=== PATIENT | female | born 1965 | race Caucasian/White ===

== ENCOUNTER 2024-12-28 14:10 | Emergency (ER) | payer OTHER, SELFPAY ==
[2024-12-28 14:29] VITALS: BP 157/85; PULSE 80; RESP 18; TEMP 37.1; O2SAT 98; BMI 34.7
--- NOTE | 2024-12-28 14:34 | CRLHL7_ITS ---
For Patients: As a result of the Century Cures Act, medical imaging exams and procedure reports are released immediately into your electronic medical record. You may view this report before your referring provider. If you have questions, please contact your health care provider. Indication: Fall, pain in 5th metatarsal. Technique: Right foot 3 views. Comparison: None. Findings: Bones: Alignment is normal. Acute nondisplaced fracture of the 5th metatarsal base with mild comminution. Small calcaneal plantar enthesophyte. Joint spaces: Yilg-li-bsekmtoh scattered degenerative changes. Soft tissues: Mild soft tissue swelling about the lateral aspect of the foot. Impression: Acute nondisplaced fracture of the 5th metatarsal base with mild comminution. Dictated by Manav Vivas MD @ 12/28/2024 3:15:16 PM (Electronically Signed)
--- OUTSIDE RECORDS SUMMARY | 2024-12-28 14:55 | XMS_ITS | Clinical Summary ---
Author Organization [facility] Address [address] [place] [address] Care Team Providers Care Metal Can Inspector Name Role Phone Nova Mishra MD Primary Care Provider [phone] Allergies Active Allergy Reactions Criticality Noted Date Comments Nsaids (Non-Steroidal Anti-Inflammatory Drug) 08/31/2014 S/p gastric surgery by Dr. Babb Medications sertraline (ZOLOFT) 25 mg Oral Tab Take 25 mg by mouth Once Daily. Active Active Problems Problem Noted Date Diagnosed Date Nausea & vomiting 09/18/2016 Anxiety 09/01/2014 Essential hypertension 09/01/2014 Nausea 09/01/2014 Obesity, Class III, BMI 40-49.9 (morbid obesity) 08/31/2014 Family History Medical History Relation Comments Lung Cancer Father Other Disease Mother esophageal CA Relation Status Comments Father Mother Social History Tobacco Use Types Packs/Day Years Used Date Smoking Tobacco: Never Smokeless Tobacco: Never Alcohol Use Standard Drinks/Week Comments No 0 (1 standard drink = 0.6 oz pur e alcohol) Comments Unknown Sex and Gender Information Value Date Recorded Sex Assigned at Not on file Legal Sex Female 8:26 AM CDT Gender Identity Not on file Sexual Orientation Not on file Last Filed Vital Signs Vital Sign Reading Time Taken Comments Blood Pressure 152/79 01/19/2019 7:45 AM CDT Pulse 77 01/19/2019 7:45 AM CDT Temperature 36.8 C (98.3 F) 2014 2:51 PM CDT Respiratory Rate 16 09/18/2016 10:07 AM CDT Oxygen Saturation 77% 01/19/2019 7:45 AM CDT Inhaled Oxygen Concentration - - Weight 90.7 kg (200 lb) 08/19/2016 1:12 PM CDT Height 167.6 cm (5' 6) 01/19/2019 5:49 AM CDT Body Mass Index 32.28 08/19/2016 1:12 PM CDT Plan of Treatment Health Maintenance Due Date Last Done Comments Colonoscopy 1965 Hepatitis C Screening 1965 Pap Smear 1965 Anxiety Follow-Up (MICHAEL-7) 09/06/1964 Depression Assessment (PHQ-2) 09/06/1964 Pneumococcal 50+ Years (1 of 1 - PCV) 09/06/2013 Yearly Review of HCD 01/19/2020 01/19/2019, 08/12/2016, 10/06/2014 Zoster Vaccine (2 of 2) 02/10/2022 12/16/2021 Mammogram Screening 03/22/2022 03/22/2020 Lipid Screening 12/03/2023 12/02/2018 COVID-19 Vaccine (4 - 2023-2 5 season) 2024 03/08/2021, 07/14/2020, 06/16/2020 Influenza Vaccine (#1) 2025 2, 01/13/2020 Adult Tetanus Booster 12/02/2028 12/02/2018 , 10/18/2008 RSV Vaccines (1 - 1-dose 75+ series) 09/06/2038 Meningococcal B Vaccine Aged Out No l onger eligible based on patient's age to complete this topic Medical Devices Implanted Type Area Curriculum Supervisor Device Identifier Shelf Expiration Date Model / Serial / Lot Seam Guard 60 - [id number] Implanted:Qty : 5 on 08/31/2014 by Tito Babb MD at [facility] Supply N/A: Stomach [employer] 04/02/2017 [id number] / / [id number] Procedures Procedure Name Priority Date/Time Associated Diagnosis Comments LIPID PROFILE CASCADE Routine 12/02/2018 2:44 PM CDT Encounter for screening for lipoid disorders from Last 3 Months or Most Recently Relevant to Health Maintenance Results * LIPID PROFILE CASCADE (12/02/2018 2:44 PM CDT) Specimen Type 12/02/2018 10:30 PM CDT [facility] Cholesterol 155 <200 mg/dL 12/02/2018 10:30 PM CDT [facility] Triglycerides 40 <150 mg/dL 12/02/2018 10:30 PM CDT [facility] LDL Chol, Calc 43 <100 mg/dL 12/02/2018 10:30 PM CDT [facility] HDL Cholesterol 104 >40 mg/dL 9 10:30 PM CDT [facility] Chol/HDL Ratio 1.5 0.0 - 4.9 12/02/2018 10:30 PM T [facility] Blood 12/02/2018 2:44 PM CDT 12/02/2018 10:15 PM CDT Narrative [facility] - 12/02/2018 10:30 PM CDT LDL CHOLESTEROL REFERENCE RANGES: (FOR PATIENTS W/O HEART DISEASE) <100 mg/dL = Optimal 100-129 mg/dL = Near/Above Optimal 130-159 mg/dL = Borderline High 160-189 mg/dL = High >/= 190 mg/dL = Very High us Nova Mishra MD CHEMISTRY ORDERABLE Final Result [facility] [address] [place] [address] from Last 3 Months or Most Recently Relevant to Health Maintenance Care Teams Metal Can Inspector Relationship Specialty Start Date End Date Nova Mishra MD PCP - General Family Medicine 08/30/14
--- OUTSIDE RECORDS SUMMARY | 2024-12-28 14:55 | XMS_ITS | Patient Health Record ---
Author Organization [facility] Address [address] [place] [address] [address] GARCIA [place] [id number] Care Team Providers Care Cotton Tipper Name Role Phone JOSE ANNE MD Unavailable Unavailable Allergies Allergen (clinical drug ingredient) Drug/Non Drug Allergy documented on EMR Reaction Allergy Type Onset Date Status NSAIDS Unknown Drug Allergy Active Reason For Referral No Information Medications Medication SIG (Take, Route, Frequency, Duration) Notes Start Date End Date Status Calcium Citrate-Vitamin D 500-400 MG-UNIT 2 tablet Orally Twice a day Minitures- Active Centrum Silver take two tablets Orally daily Active Vitamin D High Potency 1000 UNIT 1 capsule Orally Once a day this will be taken in chewable form Active Sertraline HCl 50 MG 1 tablet Orally Once a day Active Omeprazole Magnesium 20 MG 1 tablet Orally Once a day Not-Taking Problems Problem Type SNOMED Code ICD Code Onset Dates Problem Status W/U Status Risk Notes Problem History of bariatric surgical procedure (375376085) Bariatric surgery status (V45.86) Active confirmed Problem Postoperative follow-up visit (361975331) Post op follow-up exam (V67.09) Active confirmed Problem Body mass index 35.00 to 39.99 (087265026888571) BMI 39.0-39.9, adult (V85.39) Active confirmed Problem Body mass index 40+ - severely obese (935774534) BMI 45.0-49.9, adult (V85.42) Active confirmed Problem Hypertension (69636525) Hypertension (401.9) Active confirmed Problem Morbid obesity (491899923) Morbid obesity (278.01) Active confirmed Problem Anxiety (76258143) Anxiety (300.00) Active conf irmed Problem Gastroesophageal reflux disease (796061107) Gastroesophageal reflux disease (530.81) Active confirmed Problem Joint pain (60816201) Joint pain (719.40) Active confirmed Problem Anxiety (23828284) Anxiety (F41.9) Active confi rmed Problem Constipation (62235919) Constipation (K59.00) Active confirmed Problem Obesity (824044124) Obesity, Cla ss I & II (E66.09) Active confirmed Problem Fatty liver (186730820) Fatty (change of) liver, not elsewhere classified (K76.0) Active confirmed Problem Acute abdomen (0034063) Acute abdomen (R10.0) Active confirmed Problem Body mass index 30.00 to 34.99 (334413925503978) Body mass index (BMI) 31.0-31.9, adult (Z68.31) Active confirmed Problem Body mass index 30.00 to 34.99 (614395571854209) Body mass index (BMI) 34.0-34.9, adult (Z68.34) Active confirmed Problem History of bariatric surgical procedure (749738874) Bariatric surgery status (Z98.84) Active confirmed Problem Obesity (083146058) Obesity, unspecified (E66.9) Active confirmed Problem Bowel obstruction (14038997) Bowel obstruction (K56.60) Active confirmed Problem Constipation (95198921) Constipation, unspecified constipation type (K59.00) Active confirmed Problem Obese class II (902460091195920) BMI 35.0-35.9,adult (Z68.35) Active confirmed Problem Obese class I (finding) (118412174173910) Obesity (BMI 30.0-34.9) (E66.9) Active confirmed Plan Of Treatment No Information Insurance Providers Payer Name Payer Address Payer Phone Subscriber Number Group Number Insured Name Patient Relationship to Insured Coverage Start Date Coverage End Date [employer] [address] [address] [place] [address] [id number] ARLEY WAITE Self - patient is the insured Medical (General) History Medical History History ICD Code H/O lumpectomy V45.89 Fatty (change of) liver, not elsewhere c lassified K76.0 obesity anxiety essential hypertension nausea and vomiting constipation dysphagia heartburn mitral valve prolapse abdominal pain lumbar pain spondylolisthesis muscular deconditioning Surgical History Surgery Date(Month/Year) dilatation and curettage lumpectomy 1999 EGD - Dr. Babb 09/15/2013 colonoscopy 2015 lap vertically oriented sleeve gastrecto my - Dr Tito Babb 08/31/2014 endoscopy 2015 wisdom teeth extraction upper GI endoscopy - Dr Tito Babb 09/18/2016 Hospitalization History Reason Date(Month/Year) Childbirth x2
--- OUTSIDE RECORDS SUMMARY | 2024-12-28 14:55 | XMS_ITS | Clinical Summary ---
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 Gender Identity Not on file Sexual Orientation Not on file Plan of Treatment Health Maintenance Due Date Last Done Comments Tetanus booster 09/06/1974 Depression screening for age 12+ 1975 HIV for age 15-65 09/06/1978 BMI (ht and wt on same day) for age 18+ 09/06/1981 Hepatitis C screening for ag e 18-79 09/06/1981 Pap test for age 21-65 09/06/1984 Colonoscopy through age 75 09/06/2008 Lipids for age 45-75 09/06/2008 Mammogram for age 45-75 09/06/2008 Pneumococcal series for age 50+ (1 of 1 - PCV) 09/06/2013 Zoster (shingles) series for age 50+ (1 of 2) 09/06/2013 COVID-19 vaccine series ( - 2023- season) 2024 Influenza Vaccine (#1) 2025 RSV vaccine for adults or (1 - 1-dose 75+ series) 09/06/2038 Hepatitis B series for 19+ Aged Out N o longer eligible based on patient's age to complete this topic Insurance [facility] Care Teams Medium Cycle Salesperson Relationship Specialty Start Date End Date Rick Daugherty MD [address] [place] [phone] PCP - General Screening Tech 07/28/24
--- OUTSIDE RECORDS SUMMARY | 2024-12-28 14:55 | XMS_ITS | Clinical Summary ---
Author Organization [facility] Address [address] [place] [address] Care Team Providers Care Bulb Grader Name Role Phone Unavailable Primary Care Provider Unavailabl e Source Comments You are receiving this document as you are listed as the primary care provider,follow-up provider, or the patient has been referred to you for consultation.This is in compliance with the Medicare and[facility] EHR Incentive Program,which states Providers who transition their patient to another setting of careor provider of care or refers their patient to another provider of care shouldprovide summary care record for each transition of care or referral. [facility] Allergies No known active allergies Medications multivitamin (THERAGRAN) tablet Take 1 Tab by mouth daily. Active cyclobenzaprine (FLEXERIL) 5 MG tablet Take 1-2 Tabs by mouth three times a day as needed for Muscle Spasms. 30 Tab 12/15/2016 Active cholecalciferol (VITAMIND3) 2000 UNITS tablet Take 2,000 Units by mouth daily. Active sertraline (ZOLOFT) 100 MG tablet Take 100 mg by mouth daily. 07/28/2020 Active Active Problems No known active problems Resolved Problems Problem Noted Date Diagnosed Date Resolved Date Lumbar pain 12/02/2017 05/20/2018 Immunizations Immunization Administration Dates Next Due Tdap 10/18/2008 Family History Medical History Relation Name Comments Cancer, Breast Maternal Grandmother Cancer, Ovary Negative Family History Relation Name Status Comments Maternal Grandmother Social History Tobacco Use Types Packs/Day Years Used Date Smoking Tobacco: Never Smokeless Tobacco: Never Comments No Sex and Gender Information Value Date Recorded Sex Assigned at Female 02/18/2024 1:54 PM CDT Legal Sex Female 7:31 PM CDT Gender Identity Female 02/18/2024 1:54 PM CDT Sexual Orientation Straight 02/18/2024 1: 54 PM CDT Last Filed Vital Signs Vital Sign Reading Time Taken Comments Blood Pressure 162/76 06/22/2017 3:10 PM FORM SETTER Pulse 68 06/22/2017 3:10 PM FORM SETTER Temperature 36.6 C (97.8 F) 12/15/2016 11:24 AM CDT Respiratory Rate 16 11/28/2016 2:55 PM CDT Oxygen Saturation 100% 11/28/2016 2:55 PM CDT Inhaled Oxygen Concentration - - Weight 88.9 kg (196 lb) 06/22/2017 3:10 PM FORM SETTER Height 167.6 cm (5' 6) 06/22/2017 3:10 PM FORM SETTER Body Mass Index 31.64 06/22/2017 3:10 PM FORM SETTER Plan of Treatment Health Maintenance Due Date Last Done Comments Cervical Cancer Screening Due 1965 Colon Cancer Screening Plan Due 1965 Hep C Screening (Preventive Services) 1963 HIV Screening (Preventive Services) 1979 Adult Preventive Visit 09/06/1981 Cholesterol 09/06/2008 Pneumococcal Vaccine 50+ Yrs (1 of 1 - PCV) 09/06/2013 Zoster/Shingles Vaccine (1 o f 2) 09/06/2013 Mammogram 06/04/2023 06/04/2022, 03/22/2020 COVID-19 Vaccine (3 - 2023-2 5 season) 2024 07/14/2020, 06/16/2020 Influenza Vaccine (#1) 2025 01/13/2020 DTaP/Tdap/Td Vaccine (3 - Tdap) 12/02/2028 12/02/2018, 10/18/2008 RSV Vaccine (1 - 1-dose 75+ series) 09/06/2038 HepA Vaccine Aged Out No longer eligi ble based on patient's age to complete this topic HepB Vaccine Aged Out No longer eligi ble based on patient's age to complete this topic Hib Vaccine Aged Out No longer eligi ble based on patient's age to complete this topic IPV (Polio) Vaccine Aged Out No longe r eligible based on patient's age to complete this topic MCV4 Vaccine Aged Out No longer eligi ble based on patient's age to complete this topic Meningococcal B Vaccine Aged Out No l onger eligible based on patient's age to complete this topic Procedures Procedure Name Priority Date/Time Associated Diagnosis Comments MM MAMMOGRAM SCREENING BILAT W 3D CANDY W CAD Routine 06/04/2022 3:04 PM FORM SETTER Visit for screening mammogram from Last 3 Months or Most Recently Relevant to Health Maintenance Results * MM Mammogram Screening Bilat W 3D Candy W CAD (06/04/2022 3:04 PM FORM SETTER) Anatomical Region Laterality Modality Breast Bilateral Mammography Impressions 06/05/2022 11:59 AM FORM SETTER : ACR BI-RADS Category 1: Negative RECOMMENDATION: Follow Up Imaging in 12 months - Bilateral The results and recommendations of this examination will be communicated to the patient. Narrative 06/05/2022 11:59 AM FORM SETTER MM MAMMOGRAM SCREENING BILAT W 3D CANDY W CAD performed on 06/04/22 Compared to: 03/22/2020 MM Mammogram Screening Bilat W 3D Candy W CAD FINDINGS: Bilateral screening mammogram was performed with the assistance of Computer-Aided Detection and breast tomosynthesis. The breasts are heterogeneously dense, which may obscure small masses. There is no radiographic evidence of malignancy. Rick Daugherty MD [facility] Final Result from Last 3 Months or Most Recently Relevant to Health Maintenance Insurance [facility] Member Subscriber Plan / Payer (Ef fective 2016-Present) Name:Arley Waite Relation to Subscriber:Employee Name:ARLEY WAITE (Home) Payer ID:Not on file Group ID:Not on file Type:Workers Comp Address: [address] [place] [id number]
--- NOTE | 2024-12-28 15:21 | ED.GENADULT ---
HPI - General Adult General Chief complaint: Extremity Pain/Injury, Lower Stated complaint: possible R foot break Time Seen by Provider: 12/28/24 14:18 Source: patient Mode of arrival: wheelchair Limitations: no limitations History of Present Illness HPI narrative: Lalita 59-year-old female presenting today with foot pain. States that she was wearing new high heel shoes when her foot rolled and she felt immediate pain over the lateral right foot. Could not bear weight afterwards. Denies other injury. States that she is generally healthy, takes no medications. Related Data Home Medications ?Medication ?Instructions ?Recorded ?Confirmed No Known Home Medications 12/28/24 12/28/24 Allergies Allergy/AdvReac Type Severity Reaction Status Date / Time No Known Drug Allergies Allergy Verified 12/28/24 14:27 Review of Systems Status of ROS: Reports: 6 or more systems reviewed and unremarkable except as noted in History and below [facility] Social History Smoking Status: Never smoker How often do you have a drink containing alcohol: monthly or less AUDIT-C Alcohol total score: 1 Non-prescribed substance use: denies use Exam Narrative: Exam Narrative: Well-nourished female no acute distress. Alert oriented, pleasant, answering questions appropriately. Right foot has swelling and ecchymosis over the lateral dorsal surface. Tenderness to palpation at the area. Normal DP and PT pulses. Normal capillary refill. Const: Vital Signs, click to edit/add: Vital Signs - 24 hr 12/28/24 14:29 Temperature 98.7 F Pulse Rate [Pulse Oximeter] 80 Respiratory Rate 18 Blood Pressure [Ri ght Upper Arm] 157/85 H Pulse Oximetry 98 Oxygen Delivery Me thod Room Air Course Course ED Course: X-ray of the foot, read by me, shows a fracture of the proximal 5th metatarsal. Toradol given IM. Patient placed in a cam boot. Vital Signs Vital signs: Initial Vital Signs Temperature 98.7 F 12/28/24 14:29 Temperature Source Temporal Artery Scan 12/28/24 14:29 Pulse Rate 80 12/28/24 14:29 Respiratory Rate 18 12/28/24 14:29 Blood Pressure 157/85 H 12/28/24 14:29 Blood Pressure Mean 109 H 12/28/24 14:29 Pulse Oximetry 98 12/28/24 14:29 Oxygen Delivery Method Room Air 12/28/24 14:29 Vital Signs Temperature 98.7 F 12/28/24 14:29 Pulse Rate 80 12/28/24 14:29 Respiratory Rate 18 12/28/24 14:29 Blood Pressure 157/85 H 12/28/24 14:29 Pulse Oximetry 98 12/28/24 14:29 Oxygen Delivery Method Room Air 12/28/24 14:29 Temperature 98.7 F 12/28/24 14:29 Pulse Rate 80 12/28/24 14:29 Respiratory Rate 18 12/28/24 14:29 Blood Pressure 157/85 H 12/28/24 14:29 Pulse Oximetry 98 12/28/24 14:29 Oxygen Delivery Method Room Air 12/28/24 14:29 Medical Decision Making MDM Narrative Medical decision making narrative: Fracture of the proximal 5th metatarsal. Patient will follow-up with orthopedics. Imaging Data X-ray foot: Attestation: I have reviewed the pertinent imaging results. Radiologist's impression: Technique: Right foot 3 views. Comparison: None. Findings: Bones: Alignment is normal. Acute nondisplaced fracture of the 5th metatarsal base with mild comminution. Small calcaneal plantar enthesophyte. Joint spaces: [id number]-[id number] scattered degenerative changes. Soft tissues: Mild soft tissue swelling about the lateral aspect of the foot. Impression: Acute nondisplaced fracture of the 5th metatarsal base with mild comminution. Discharge Plan Discharge Clinical Impression: Fracture of metatarsal bone Patient Disposition: Home, Self-Care Condition: Stable Additional Instructions: Elevate but throughout the day as much as you can. Ice for 20 minutes at a time every 2 hours. Do not apply ice directly to the skin. Wear boot whenever walking. Follow-up with orthopedics in the next 5 days. Take pain medication as needed/as directed. Medication can make you feel sleepy. Do not operate a vehicle when taking this medication. Fifteen tablets of Tramadol sent to [facility]. Prescriptions: No Action No Known Home Medications Follow Up/Referrals: Provider,Not a Local [Primary Care Provider, Family Practice] Stand Alone Forms: MyHealth Info Instructions
== END 2024-12-28 16:10 | disposition home or self-care (01) ==
PROVIDERS: Emergency Provider Family Medicine
DX: S92.354A Nondisplaced fracture of fifth metatarsal bone, right foot, initial encounter for closed fracture (principal); X50.0XXA Overexertion from strenuous movement or load, initial encounter
CPT/HCPCS: 73630; 96372; 99283; 99284; J1885